=== PATIENT | female | born 1975 | race African-American/Black ===

== ENCOUNTER → 2017-02-16 | Outpatient (CLI) | payer MEDICARE, MEDICAID ==
[2017-02-16 17:12] LABS: ALBUMIN 2.4 g/dL (3.4-5.0); ALBUMIN/GLOBULIN RATIO 0.4 (1.0-1.7); CALCIUM 7.8 mg/dL (8.5-10.1); CREATININE 7.4 mg/dL (0.6-1.0); GFR 7.4; TOTAL BILIRUBIN 0.2 mg/dL (0.2-1.0)
[2017-02-16 20:49] LABS: FREE T4 0.98 ng/dL (0.76-1.46)
== END | disposition home or self-care (01) ==
LOC: LAB 16:22
PROVIDERS: ATTEND Psychiatry & Neurology Neurology
DX: G51.0 Bell's palsy (principal)
CPT/HCPCS: 36415; 80053; 82607; 84439; 84443; 85651

== ENCOUNTER → 2017-03-15 | Outpatient (CLI) | payer MEDICARE, OTHER ==
--- NOTE | 2017-03-15 12:06 | RAD ---
MRI of the brain without contrast 03/15/2017 Clinical History: Headaches with left-sided facial droop and muscle spasms.. Technique: Unenhanced T1-weighted sagittal and axial, T2-weighted axial and coronal and FLAIR and diffusion-weighted axial images of the brain were obtained. Additionally thin section T1-weighted axial and coronal and T2-weighted axial images through the brainstem/IAC's were obtained. Findings: The ventricles and sulci are within normal limits in size and configuration. Patchy and multiple focal areas of abnormally increased signal intensity are seen within the periventricular and subcortical white matter of both cerebral hemispheres on the FLAIR and T2-weighted images. These measure 2 mm to 7 mm in size. Their MRI appearance is nonspecific. No acute parenchymal abnormality is seen. No extra-axial fluid collection is seen. There is no MRI evidence of acute ischemia/infarction. Images through the brainstem/IAC's are within normal limits. Mild mucosal thickening is seen involving the paranasal sinuses. There is a minimal left mastoid effusion. Normal flow voids are seen within the major vascular structures surrounding the brain parenchyma. Impression: 1. Areas of abnormally increased signal intensity are seen within the white matter of both cerebral hemispheres. The MRI appearance is nonspecific and could represent areas of small vessel ischemic disease, could be seen in a demyelinating disorder such as multiple sclerosis, or in patients with a history of migraine headaches. Clinical correlation is recommended. 2. No acute parenchymal abnormality is seen. Electronically signed by: Karl Da Silva MD (03/15/2017 12:03 PM) [id number]
== END | disposition home or self-care (01) ==
LOC: MRI 10:25
PROVIDERS: ATTEND Psychiatry & Neurology Neurology
DX: G51.0 Bell's palsy (principal); R51 Headache
CPT/HCPCS: 70551

== ENCOUNTER → 2017-04-20 | Outpatient (CLI) | payer MEDICARE, BC, OTHER ==
[~2017-04-20] VITALS: Ht 160 cm; Wt 74.8 kg
[2017-04-20 07:58] LABS: BASO % 1 % (0-3); EOS % 6 % (0-3); HEMATOCRIT 30.9 % (36.0-47.0); HEMOGLOBIN 10.3 g/dL (12.0-15.5); LYMPH # 1.7 x10^3/uL (1.0-4.8); LYMPH % 22 % (24-48); MEAN CORPUSCULAR HEMOGLOBIN 31 pg (25-35); MEAN CORPUSCULAR HGB CONC 33 g/dL (31-37); MEAN CORPUSCULAR VOLUME 93 fL (79-100); MONO % 8 % (0-9); NEUT % 64 % (31-73); PLATELET COUNT 220 x10^3/uL (140-400); RED BLOOD COUNT 3.33 x10^6/uL (3.50-5.40); RED CELL DISTRIBUTION WIDTH 14.7 % (11.5-14.5)
[2017-04-20 08:07] VITALS: BP 123/90
[2017-04-20 08:15] LABS: PROTHROMBIN TIME PATIENT 12.7 SEC (11.7-14.0)
[2017-04-20 09:22] VITALS: BP 134/88
[2017-04-20 10:24] LABS: CSF CLARITY CLEAR; CSF COLOR COLORLESS
[2017-04-20 12:00] VITALS: BP 140/101
--- NOTE | 2017-04-20 16:18 | RAD ---
Fluoroscopically guided lumbar puncture, 04/20/2017: History: Multiple sclerosis Under local anesthesia, aseptic conditions and fluoroscopic guidance a lumbar puncture was performed at the L2-3 level utilizing a 20-gauge spinal needle. Good clear CSF flow was obtained. The opening pressure was 13 cm of water. 9 cc of CSF was removed and sent to the lab for appropriate studies. The closing pressure was 11 cm of water. The spinal needle was then removed and hemostasis obtained. 0.8 minutes of fluoroscopy time was utilized. One fluoroscopic spot image was recorded. The patient tolerated the procedure well and left the department in good condition.
== END | disposition home or self-care (01) ==
LOC: RAD 07:29
PROVIDERS: ATTEND Psychiatry & Neurology Neurology
DX: G35 Multiple sclerosis (principal); G51.0 Bell's palsy
CPT/HCPCS: 36415; 62270; 82945; 84157; 85025; 85610; 87205; 89051

== ENCOUNTER → 2018-09-29 | Outpatient (CLI) | payer MEDICARE, BC ==
[2017-04-20 12:00] VITALS: BP 140/101
--- NOTE | 2018-09-29 14:36 | RAD ---
Bilateral lower extremity arterial duplex ultrasound 09/29/2018 INDICATION: Peripheral vascular disease. COMPARISON STUDY: None. Discussion: Ultrasound evaluation of the major arteries of the bilateral lower extremities was performed. Evaluation includes color Doppler imaging with spectral analysis. Normal waveform morphology and velocities are seen throughout the major arteries of the bilateral lower extremities. No focal occlusion or aneurysm is identified. IMPRESSION: Normal sonographic appearance of the major arteries of the bilateral lower extremities Electronically signed by: Trev Kang MD (09/29/2018 2:30 PM) [id number]
== END | disposition home or self-care (01) ==
LOC: US 11:07
PROVIDERS: ATTEND Psychiatry & Neurology Neurology
DX: I73.9 Peripheral vascular disease, unspecified (principal)
CPT/HCPCS: 93925

== ENCOUNTER → 2018-12-28 | Outpatient (CLI) | payer MEDICARE, BC ==
[2017-04-20 12:00] VITALS: BP 140/101
[2018-12-28 11:08] LABS: BASO % 1 % (0-3); EOS # 0.4 x10^3/uL (0.0-0.7); EOS % 6 % (0-3); HEMATOCRIT 39.9 % (36.0-47.0); HEMOGLOBIN 13.5 g/dL (12.0-15.5); LYMPH # 1.8 x10^3/uL (1.0-4.8); LYMPH % 24 % (24-48); MEAN CORPUSCULAR HEMOGLOBIN 31 pg (25-35); MEAN CORPUSCULAR HGB CONC 34 g/dL (31-37); MEAN CORPUSCULAR VOLUME 92 fL (79-100); MONO # 0.8 x10^3/uL (0.0-1.1); MONO % 11 % (0-9); NEUT # 4.4 x10^3uL (1.8-7.7); NEUT % 58 % (31-73); PLATELET COUNT 121 x10^3/uL (140-400); RED BLOOD COUNT 4.32 x10^6/uL (3.50-5.40); RED CELL DISTRIBUTION WIDTH 14.3 % (11.5-14.5); WHITE BLOOD COUNT 7.5 x10^3/uL (4.0-11.0)
[2018-12-28 11:32] LABS: ALBUMIN 2.9 g/dL (3.4-5.0); ALBUMIN/GLOBULIN RATIO 0.4 (1.0-1.7); CALCIUM 8.4 mg/dL (8.5-10.1); CREATININE 9.3 mg/dL (0.6-1.0); GFR 5.6; POTASSIUM 3.8 mmol/L (3.5-5.1); TOTAL BILIRUBIN 0.3 mg/dL (0.2-1.0); TOTAL PROTEIN 9.7 g/dL (6.4-8.2)
[2018-12-30 15:18] LABS: ALBUM 3.3 g/dL (2.9-4.4); ALPHA 1 0.2 g/dL (0.0-0.4); ALPHA 2 0.9 g/dL (0.4-1.0); BETA 0.9 g/dL (0.7-1.3); GAMMA 3.3 g/dL (0.4-1.8); PROTEIN TOTAL 8.7 g/dL (6.0-8.5); SPEP AG RATIO 0.6 (0.7-1.7)
[2018-12-30 19:09] LABS: ANA INTERP Negative (.)
== END | disposition home or self-care (01) ==
LOC: LAB 10:41
PROVIDERS: ATTEND Psychiatry & Neurology Neurology with Special Qualifications in Child Neurology
DX: G62.9 Polyneuropathy, unspecified (principal); R20.0 Anesthesia of skin; R53.1 Weakness
CPT/HCPCS: 36415; 80053; 82607; 82746; 84165; 84443; 85025; 85651; 86038; 86141; 86592